=== PATIENT | female | born 1945 | race Caucasian/White ===

== ENCOUNTER 2018-01-18 05:56 | Inpatient (IN) ==
[2018-01-18] MEDS ORDERED: Morphine Inj 4 MG/ML Vial IV.PUSH ONE (06:20)
--- NOTE | 2018-01-18 06:24 | ED ---
HPI General Chief Complaint: Abdominal Pain Stated Complaint: Medical Time Seen by Provider: 01/18/18 06:06 Source: patient and EMS Mode of arrival: EMS Limitations: no limitations History of Present Illness MD complaint: Reports abdominal pain Onset (ago): minute(s) Pain Consistency: constant Location: Reports RUQ Severity scale (1-10): 7 Quality: Reports stabbing Radiation: Reports none Migration to: Reports no migration Relieving factors: nothing Exacerbating factors: nothing Associated symptoms: Reports denies other symptoms Related Data Home Medications Medication Instructions Recorded Confirmed No Known Home Medications 01/18/18 01/18/18 Previous Rx's Medication Instructions Recorded hydrocodone-acetaminophen [[place]] 1 tab PO Q6H #10 tab 01/21/18 Allergies Allergy/AdvReac Type Severity Reaction Status Date / Time No Known Allergies Allergy Verified 01/18/18 06:01 Review of Systems ROS: all other systems reviewed are negative [facility] Medical History Medical History Patient denies medical problems (Acute) Family History Family History Other No pertinent family history Social History Social History Substance History: No History of Abuse Second Hand Smoke Exposure: No Smoking Status: Former smoker Tobacco Type: Cigarettes How Often Do You Have a Drink Containing Alcohol: 4 or more times a week Recent Travel in [facility] within the Last 8 Weeks: No Recent Out of Country Travel within the Last 8 Weeks: No Immunization History Tetanus Immunization: Unsure Exam Const General: cooperative, healthy appearing, no acute distress, well developed, well groomed and other (She is sitting bolt upright on the stretcher) Orientation: alert, awake and oriented x3 HENMT Head: normal to inspection, normocephalic and atraumatic Mouth: moist mucous membranes Eyes Conjunctivae: conjunctivae normal Sclera: sclerae normal EOM: EOM intact bilaterally Neck Neck: normal visual inspection and full ROM Chest Chest: normal inspection of the chest Resp Effort & Inspection: normal respiratory effort and able to speak in complete sentences Auscultation: clear to auscultation bilaterally Cardio Rate: regular rate Rhythm: regular rhythm GI Inspection: normal to inspection Palpation: soft and tender in the RUQ Back/Spine/Pelvis Cervical Spine: cervical ROM normal Thoracic/Lumbar Spine: thoraco-lumbar ROM normal Skin General: no rashes or lesions noted and turgor normal Neuro General: alert, awake, oriented x3, moves all extremities and CN's II-XI intact bilaterally Extrem General: normal to inspection and full ROM Psych Appearance: grossly normal Mental Status: mental status grossly normal Speech and Movement: speech and movement normal Mood: congruent mood Affect: normal affect Attitude: cooperative Thought Process: normal Thought Content: normal Judgment: judgment good Course Initial Documented Vital Signs Temperature 98.7 F 01/18/18 06:04 Pulse Rate 94 H 01/18/18 06:04 Respiratory Rate 20 01/18/18 06:04 Blood Pressure 128/75 01/18/18 06:04 Pulse Oximetry 97 01/18/18 06:04 Last Documented Vital Signs Temperature 97.3 F L 01/21/18 08:00 Pulse Rate 74 01/21/18 08:00 Respiratory Rate 17 01/21/18 08:00 Blood Pressure 119/68 01/21/18 08:00 Pulse Oximetry 96 01/21/18 09:57 Medical Decision Making [facility] Narrative Medical decision making narrative: This is a healthy, 72-year-old woman who presents with the acute onset of right upper quadrant abdominal pain. It awakened her from sleep. She denies any associated symptoms. She still has her gallbladder. On exam, she is tender in the right upper quadrant. Abdominal workup has been initiated including an ultrasound of her gallbladder. In the meantime, she will be treated with IV Zofran and morphine. 9:04 AM. Patient was seen by ED physician and signed out to me. Normal saline solution 125 cc an hour. Pepcid 20 mg IV. Zosyn 3.375 g IV given. Medical Screen Exam Complete: Yes Emergency Medical Condition: Yes Differential Diagnosis Differential Diagnosis: Differential diagnosis of abdominal pain includes but is not limited to gastritis, pancreatitis, hepatitis, gastroenteritis, constipation, urinary retention, peptic ulcer disease, diverticulitis or appendicitis Lab Data Lab results reviewed: Yes I reviewed the patient's lab results. Result diagrams: 01/19/18 03:52 01/18/18 06:20 Lab Results 01/18/18 01/18/18 01/19/18 Range/Units 06:20 06:20 03:52 WBC 11.6 H 13.5 H (4.0-11.0) th/mm3 RBC 5.28 4.94 (4.00-5.30) mil/mm3 Hgb 16.4 H 15.4 H (11.6-15.3) gm/dL Hct 47.4 H 44.8 (35.0-46.0) % MCV 89.7 90.8 (80.0-100.0) fL MCH 31.1 31.2 (27.0-34.0) pg MCHC 34.6 34.3 (32.0-36.0) % RDW 14.7 14.7 (11.6-17.2) % Plt Count 368 283 (150-450) th/mm3 MPV 7.6 7.7 (7.0-11.0) fL Neut % (Auto) 85.1 H 95.7 H (16.0-70.0) % Lymph % (Auto) 9.7 2.8 L (9.0-44.0) % Divide % (Auto) 4.3 1.5 (0.0-8.0) % Eos % (Auto) 0.6 0.0 (0.0-4.0) % Baso % (Auto) 0.3 0.0 (0.0-2.0) % Neut # (Auto) 9.9 H 12.9 H (1.8-7.7) th/mm3 Lymph # (Auto) 1.1 0.4 L (1.0-4.8) th/mm3 [place] # (Auto) 0.5 0.2 (0.0-0.9) th/mm3 Eos # (Auto) 0.1 0.0 (0.0-0.4) th/mm3 Baso # (Auto) 0.0 0.0 (0.0-0.2) th/mm3 WBC Differential . . Differential Comment Auto diff final Auto diff final Sodium 138 (136-145) meq/L Potassium 3.9 (3.5-5.1) meq/L Chloride 106 (98-107) meq/L Carbon Dioxide 24.5 (21.0-32.0) meq/L Anion Gap 8 (5-15) meq/L BUN 9 (7-18) mg/dL Creatinine 0.73 (0.50-1.00) mg/dL Estimated GFR 78 L (>89) mL/min Random Glucose 90 (74-106) mg/dL Calcium 9.0 (8.5-10.1) mg/dL Magnesium 2.2 (1.5-2.5) mg/dL Total Bilirubin 0.5 (0.2-1.0) mg/dL AST 33 (15-37) U/L ALT 44 (10-53) U/L Alkaline Phosphatase 109 (45-117) U/L Total Protein 7.0 (6.4-8.2) g/dL Albumin 3.4 (3.4-5.0) g/dL Lipase 104 (73-393) U/L Urine Color (Yellw/Straw) Urine Clarity (Clear) Urine pH (5.0-8.5) Ur Specific [place] (1.002-1.035) Urine Protein (Neg-Trace) mg/dL Urine Glucose (UA) (Negative) mg/dL Urine Ketones (Negative) mg/dL Urine Occult Blood (Negative) Urine Nitrate (Negative) Urine Bilirubin (Negative) Urine Urobilinogen (Less than 2) mg/dL Ur Leukocyte Esterase (Negative) Urine RBC (0-3) /hpf Urine WBC (0-5) /hpf Ur Squamous Epith Cells (0-5) /hpf Urine Mucus (Occasional) /lpf Micro UA Comment Ur Microscopic Review Urine Culture Comments 01/19/18 Range/Units 08:40 WBC (4.0-11.0) th/mm3 RBC (4.00-5.30) mil/mm3 Hgb (11.6-15.3) gm/dL Hct (35.0-46.0) % MCV (80.0-100.0) fL MCH (27.0-34.0) pg MCHC (32.0-36.0) % RDW (11.6-17.2) % Plt Count (150-450) th/mm3 MPV (7.0-11.0) fL Neut % (Auto) (16.0-70.0) % Lymph % (Auto) (9.0-44.0) % [place] % (Auto) (0.0-8.0) % Eos % (Auto) (0.0-4.0) % Baso % (Auto) (0.0-2.0) % Neut # (Auto) (1.8-7.7) th/mm3 Lymph # (Auto) (1.0-4.8) th/mm3 [place] # (Auto) (0.0-0.9) th/mm3 Eos # (Auto) (0.0-0.4) th/mm3 Baso # (Auto) (0.0-0.2) th/mm3 WBC Differential Differential Comment Sodium (136-145) meq/L Potassium (3.5-5.1) meq/L Chloride (98-107) meq/L Carbon Dioxide (21.0-32.0) meq/L Anion Gap (5-15) meq/L BUN (7-18) mg/dL Creatinine (0.50-1.00) mg/dL Estimated GFR (>89) mL/min Random Glucose (74-106) mg/dL Calcium (8.5-10.1) mg/dL Magnesium (1.5-2.5) mg/dL Total Bilirubin (0.2-1.0) mg/dL AST (15-37) U/L ALT (10-53) U/L Alkaline Phosphatase (45-117) U/L Total Protein (6.4-8.2) g/dL Albumin (3.4-5.0) g/dL Lipase (73-393) U/L Urine Color Yellow (Yellw/Straw) Urine Clarity Clear (Clear) Urine pH 5.0 (5.0-8.5) Ur Specific [place] 1.024 (1.002-1.035) Urine Protein Negative (Neg-Trace) mg/dL Urine Glucose (UA) 50 (Negative) mg/dL Urine Ketones 80 or greater H (Negative) mg/dL Urine Occult Blood Negative (Negative) Urine Nitrate Negative (Negative) Urine Bilirubin Negative (Negative) Urine Urobilinogen Less than 2 (Less than 2) mg/dL Ur Leukocyte Esterase Negative (Negative) Urine RBC Less than 1 (0-3) /hpf Urine WBC 3 (0-5) /hpf Ur Squamous Epith Cells <1 (0-5) /hpf Urine Mucus Few H (Occasional) /lpf Micro UA Comment Culture not ind Ur Microscopic Review Not Reportable Urine Culture Comments Culture not ind Imaging Data Attestation: I personally reviewed and interpreted this imaging study as follows : Radiologist's impression: Gallbladder Ultrasound 01/18/18 06:20 CONCLUSION: 1. Abnormal gallbladder with diffuse wall thickening. Gallbladder contains sludge and stones. Electrician'S Assistant reports a positive sonographic Wright sign. These findings are suspicious for acute gallbladder inflammation/acute cholecystitis. 2. Abnormal echogenic area in the right lower pole kidney representing area of a renal scar versus angiomyolipoma measuring approximately 3.5 cm. When patient condition permits suggest further evaluation with abdomen CT. Discharge Plan Discharge Disposition Patient Disposition: ED Admit(ED Internal Use Only) Discharge Condition Condition: Good Discharge Order Discharge Orders: Discharge Order (Routine); Ordered 01/21/18 Ordered By: Jose Kong ED Use Only Admit Order (Routine); Ordered 01/18/18 Ordered By: Kalyan Javed Discharge Details Diagnosis: Acute cholecystitis Physicians Team ED Provider: Mini Aguilera Primary Care Provider: Primary Care Liv Ambriz Attending Provider: Jose Kong Other Providers: Micah Noble ED Status: Left Department Discharge Information Discharge Date/Time: 01/18/18 12:30
[2018-01-18 06:46] LABS: Baso % (Auto) 0.3 % (0.0-2.0); Eos # (Auto) 0.1 th/mm3 (0.0-0.4); Eos % (Auto) 0.6 % (0.0-4.0); Hematocrit 47.4 % (35.0-46.0); Hemoglobin 16.4 gm/dL (11.6-15.3); Lymph # (Auto) 1.1 th/mm3 (1.0-4.8); Lymph % (Auto) 9.7 % (9.0-44.0); Mean Corpuscular HGB Conc 34.6 % (32.0-36.0); Mean Corpuscular Hemoglobin 31.1 pg (27.0-34.0); Mean Corpuscular Volume 89.7 fL (80.0-100.0); Mean Platelet Volume 7.6 fL (7.0-11.0); Mono # (Auto) 0.5 th/mm3 (0.0-0.9); Mono % (Auto) 4.3 % (0.0-8.0); Neut # (Auto) 9.9 th/mm3 (1.8-7.7); Neut % (Auto) 85.1 % (16.0-70.0); Platelet Count 368 th/mm3 (150-450); Red Blood Count 5.28 mil/mm3 (4.00-5.30); Red Cell Distribution Width 14.7 % (11.6-17.2); White Blood Count 11.6 th/mm3 (4.0-11.0)
[2018-01-18 07:04] LABS: Alanine Aminotransferase 44 U/L (10-53)
[2018-01-18 07:06] LABS: Alkaline Phosphatase 109 U/L (45-117)
[2018-01-18 07:10] LABS: Albumin 3.4 g/dL (3.4-5.0); Anion Gap 8 meq/L (5-15); Aspartate Aminotransferase 33 U/L (15-37); Blood Urea Nitrogen 9 mg/dL (7-18); Carbon Dioxide 24.5 meq/L (21.0-32.0); Chloride 106 meq/L (98-107); Glomerular Filtration Rate 78 mL/min (>89); Glucose,Random 90 mg/dL (74-106); Lipase 104 U/L (73-393); Magnesium 2.2 mg/dL (1.5-2.5); Potassium 3.9 meq/L (3.5-5.1); Sodium 138 meq/L (136-145)
--- NOTE | 2018-01-18 08:43 | US ---
EXAM DATE: 01/18/2018 8:30 AM EST AGE/SEX: 72 years / Female INDICATIONS: Abdominal pain. CLINICAL DATA: This is the patient's initial encounter. Patient reports that signs and symptoms have been present for 1 day and indicates a pain score of 6/10. MEDICAL/SURGICAL HISTORY: . Abdominal pain. Tonsillectomy. COMPARISON: [facility] [place], CT PULMONARY ANGIOGRAM, 07/01/2012. . MEASUREMENTS: Liver:__ 13.9 cm. Common Bile Duct:__ 7mm. FINDINGS: Liver: Normal echogenicity without focal lesion or ductal dilatation. Portal Vein: Hepatopedal flow seen in portal vein. Common Duct: Proximal common duct measures 4 mm and more distally measures 7 mm. Gallbladder: Gallbladder demonstrates diffuse wall thickening and there is a single large stone in t he fundus measuring approximately 3.1 x 1.9 cm. Sludge fills the gallbladder neck. Automotive Service Director report s a positive sonographic Wright's sign. Pancreas: Not well visualized. Right Kidney: Normal echogenicity without hydronephrosis. There is an echogenic area at the lower po le which could represent an area of renal scarring or fat containing lesion. This area measures appro ximately 2.9 x 2.1 x 3.5 cm. In the upper pole there is an anechoic avascular lesion measuring 1.4 x 1.3 x 1.3 cm. Other: None. CONCLUSION: 1. Abnormal gallbladder with diffuse wall thickening. Gallbladder contains sludge and stones. Sonogr apher reports a positive sonographic Wright sign. These findings are suspicious for acute gallbladder inflammation/acute cholecystitis. 2. Abnormal echogenic area in the right lower pole kidney representing area of a renal scar versus a ngiomyolipoma measuring approximately 3.5 cm. When patient condition permits suggest further evaluati on with abdomen CT. Electronically signed by: Sebastian Messer MD 01/18/2018 8:41 AM EST
[2018-01-18] MEDS ORDERED: Piperacil/Tazo 3.375 GM Premix 50 ML IV.SIG ONE (09:03)
[2018-01-18] MEDS ORDERED: Famotidine PF Inj 20 MG/2 ML Vial IV.PUSH ONE (09:05)
[2018-01-18] MEDS: Sod Chloride 0.9% Inj 1,000 ML IV.CONT SCH ×2 (09:42→17:03)
[2018-01-18] MEDS ORDERED: Acetaminophen 325 MG Tablet PO PRN (10:46)
[2018-01-18] MEDS ORDERED: Morphine Sulfate Inj 2 MG/ML Vial IV.PUSH PRN (10:47)
--- NOTE | 2018-01-18 10:56 | P.CONGS ---
[facility] Gen Surgery Consult Note Consult date: 01/18/18 Reason for consult: abdominal pain Requesting physician: Jose Kong Narrative: CONSULTATION NOTE FOR SURGICAL ATTENDING, DR. CHIKI NOBLE This is a 72 year old female with a past medical history of COPD on home oxygen at night who presented to the ED with sudden onset of abdominal pain. She was in her usual state of health last night when she went to bed and suddenly woke up about 0330 this morning with RIGHT upper quadrant abdominal pain. The patient reports no associated nausea or vomiting. A gallbladder US was done which shows diffuse wall thickening with sludge and stones. Her WBC is normal. Her LFTs are normal. A General Surgery consultation has been requested. Review of Systems All other systems reviewed negative except as stated in [facility] PMF - History History Provided By: Patient - Medical History Medical History: Medical History (Last Reviewed 01/18/18 @ 10:52 by MARCOS Cheney) COPD (chronic obstructive pulmonary disease) Patient denies medical problems - Surgical History Surgical History: Surgical History (Last Reviewed 01/18/18 @ 10:52 by MARCOS Cheney) Hx of tonsillectomy - Social History I have reviewed the patient's Social History: Yes - Tobacco History Smoking Status: Former smoker - Alcohol History How Often Do You Have a Drink Containing Alcohol: 4 or more times a week - Substance Use History Substance History: No History of Abuse - Travel History Recent Travel in the [place] Within the Last 8 Weeks: No Recent Travel Out of the Country Within the Last 8 Weeks: No - Immunization History Tetanus Immunization: Unsure Medications and Allergies Allergies Allergy/AdvReac Type Severity Reaction Status Date / Time No Known Allergies Allergy Verified 01/18/18 06:01 Home Medications Medication Instructions Recorded Confirmed Type No Known Home Medications 01/18/18 01/18/18 History Active Medications: Active Medications Acetaminophen (Tylenol) 650 mg PO Q4H PRN PRN Reason: fever Albuterol (Albuterol Neb (Prn)) 1.25 mg NEB Q4HR NEB PRN PRN Reason: sob Sodium Chloride (Ns Inj) 1,000 mls @ 125 mls/hr IV.CONT .Q8H MRAISA Last Admin: 01/18/18 09:42 Dose: 125 mls/hr Morphine Sulfate (Morphine Inj) 2 mg IV.PUSH Q4H PRN PRN Reason: pain Ondansetron HCl (Zofran Inj) 4 mg IV.PUSH Q8H PRN PRN Reason: nausea Sodium Chloride (Ns Flush) 2 ml IV.FLUSH PRN PRN PRN Reason: FLUSH AFTER USING IV ACCESS Exam Vital signs: Vital Signs 01/18/18 06:04 01/18/18 08:59 Temperature 98.7 F Pulse Rate 94 H 92 H Respiratory Rate 20 17 Blood Pressure 128/75 157/64 H Pulse Oximetry 97 96 Intake & Output 01/17/18 01/18/18 01/18/18 18:59 06:59 18:59 Intake Total 50 / 50 Balance 50 / 50 Weight 63.503 kg Intake: IV 50 / 50 Zosyn 3.375 GM Premix 50 ML @ 50 / 50 100 mls/hr IV.SIG ONCE ONE Rx#: [id number] Narrative: GENERAL: Very pleasant 72 year old female resting in bed in no acute distress. SKIN: Warm and dry. HEAD: Atraumatic. Normocephalic. EYES: Pupils equal and round. No scleral icterus. No injection or drainage. ENT: No nasal bleeding or discharge. Mucous membranes pink and moist. NECK: Trachea midline. CARDIOVASCULAR: Regular rate and rhythm. RESPIRATORY: No accessory muscle use. Clear to auscultation. Breath sounds equal bilaterally. GASTROINTESTINAL: Abdomen soft, nondistended. RUQ tenderness with palpation. Slight epigastric pain with palpation. No visible scars or hernias. MUSCULOSKELETAL: Extremities without clubbing, cyanosis, or edema. No obvious deformities. NEUROLOGICAL: Awake and alert. No obvious cranial nerve deficits. Motor grossly within normal limits. Five out of 5 muscle strength in the arms and legs. Normal speech. PSYCHIATRIC: Appropriate mood and affect; insight and judgment normal. Results - Labs 01/18/18 06:20 01/18/18 06:20 Laboratory Results WBC 11.6 th/mm3 (4.0-11.0) H 01/18/18 06:20 RBC 5.28 mil/mm3 (4.00-5.30) 01/18/18 06:20 Hgb 16.4 gm/dL (11.6-15.3) H 01/18/18 06:20 Hct 47.4 % (35.0-46.0) H 01/18/18 06:20 MCV 89.7 fL (80.0-100.0) 01/18/18 06:20 MCH 31.1 pg (27.0-34.0) 01/18/18 06:20 MCHC 34.6 % (32.0-36.0) 01/18/18 06:20 RDW 14.7 % (11.6-17.2) 01/18/18 06:20 Plt Count 368 th/mm3 (150-450) 01/18/18 06:20 MPV 7.6 fL (7.0-11.0) 01/18/18 06:20 Neut % (Auto) 85.1 % (16.0-70.0) H 01/18/18 06:20 Lymph % (Auto) 9.7 % (9.0-44.0) 01/18/18 06:20 [place] % (Auto) 4.3 % (0.0-8.0) 01/18/18 06:20 Eos % (Auto) 0.6 % (0.0-4.0) 01/18/18 06:20 Baso % (Auto) 0.3 % (0.0-2.0) 01/18/18 06:20 Neut # (Auto) 9.9 th/mm3 (1.8-7.7) H 01/18/18 06:20 Lymph # (Auto) 1.1 th/mm3 (1.0-4.8) 01/18/18 06:20 [place] # (Auto) 0.5 th/mm3 (0.0-0.9) 01/18/18 06:20 Eos # (Auto) 0.1 th/mm3 (0.0-0.4) 01/18/18 06:20 Baso # (Auto) 0.0 th/mm3 (0.0-0.2) 01/18/18 06:20 WBC Differential . 01/18/18 06:20 Differential Comment Auto diff final 01/18/18 06:20 Sodium 138 meq/L (136-145) 01/18/18 06:20 Potassium 3.9 meq/L (3.5-5.1) 01/18/18 06:20 Chloride 106 meq/L (98-107) 01/18/18 06:20 Carbon Dioxide 24.5 meq/L (21.0-32.0) 01/18/18 06:20 Anion Gap 8 meq/L (5-15) 01/18/18 06:20 BUN 9 mg/dL (7-18) 01/18/18 06:20 Creatinine 0.73 mg/dL (0.50-1.00) 01/18/18 06:20 Estimated GFR 78 mL/min (>89) L 01/18/18 06:20 Random Glucose 90 mg/dL (74-106) 01/18/18 06:20 Calcium 9.0 mg/dL (8.5-10.1) 01/18/18 06:20 Magnesium 2.2 mg/dL (1.5-2.5) 01/18/18 06:20 Total Bilirubin 0.5 mg/dL (0.2-1.0) 01/18/18 06:20 AST 33 U/L (15-37) 01/18/18 06:20 ALT 44 U/L (10-53) 01/18/18 06:20 Alkaline Phosphatase 109 U/L (45-117) 01/18/18 06:20 Total Protein 7.0 g/dL (6.4-8.2) 01/18/18 06:20 Albumin 3.4 g/dL (3.4-5.0) 01/18/18 06:20 Lipase 104 U/L (73-393) 01/18/18 06:20 Impressions Gallbladder Ultrasound 01/18/18 06:20 CONCLUSION: 1. Abnormal gallbladder with diffuse wall thickening. Gallbladder contains sludge and stones. Labor Expediter reports a positive sonographic Wright sign. These findings are suspicious for acute gallbladder inflammation/acute cholecystitis. 2. Abnormal echogenic area in the right lower pole kidney representing area of a renal scar versus angiomyolipoma measuring approximately 3.5 cm. When patient condition permits suggest further evaluation with abdomen CT. - Imaging Imaging: ITS Impressions Gallbladder Ultrasound 01/18/18 06:20 CONCLUSION: 1. Abnormal gallbladder with diffuse wall thickening. Gallbladder contains sludge and stones. Labor Expediter reports a positive sonographic Wright sign. These findings are suspicious for acute gallbladder inflammation/acute cholecystitis. 2. Abnormal echogenic area in the right lower pole kidney representing area of a renal scar versus angiomyolipoma measuring approximately 3.5 cm. When patient condition permits suggest further evaluation with abdomen CT. US - abdomen: report reviewed (Gallbladder), image reviewed Additional studies: ITS Impressions Gallbladder Ultrasound 01/18/18 06:20 CONCLUSION: 1. Abnormal gallbladder with diffuse wall thickening. Gallbladder contains sludge and stones. Labor Expediter reports a positive sonographic Wright sign. These findings are suspicious for acute gallbladder inflammation/acute cholecystitis. 2. Abnormal echogenic area in the right lower pole kidney representing area of a renal scar versus angiomyolipoma measuring approximately 3.5 cm. When patient condition permits suggest further evaluation with abdomen CT. Assessment and Plan - Assessment (1) Acute cholecystitis Code(s): K81.0 - Acute cholecystitis Status: Acute Plan: 72 year old female with RUQ tenderness; gallbladder wall thickened with sludge and stones -Plan for OR this afternoon -Obtain consents -Procedure explained to patient as well as at the bedside -NPO -IVF -Thank you for this consult; We will continue to follow (2) Right upper quadrant pain Code(s): R10.11 - Right upper quadrant pain Status: Acute (3) Abnormal findings on diagnostic imaging of liver and biliary tract Code(s): R93.2 - Abnormal findings on diagnostic imaging of liver and biliary tract Status: Acute - Plan Discussed Condition With: Dr. Noble and Mrs. Christina - Attending Attestation CONSULTATION NOTE FOR SURGICAL ATTENDING, DR. CHIKI NOBLE Patient has signs and symptoms of acute cholecystitis positive Wright sign tenderness confirmed with radiologic imaging Plan laparoscopic cholecystectomy possible open notify the OR they are unsure of the time of the procedure at this point I agree with above assessment and plan. The exam, history, and the medical decision-making described in the above note were completed with the assistance of the mid-level provider. I reviewed and agree with the findings presented. I attest that I had a [id number] encounter with the patient on the same day, and personally performed and documented my assessment and findings in the medical record. The following services were provided during this hospital visit: Chart data review, vital sign assessments/reviewing monitor data Review of consultations notes if present. Medication orders/review and/or management Ordering and/or reviewing lab tests Ordering and/or interpreting/reviewing x-rays and/or diagnostic studies Care of the patient and discussion of the patient with the care team Documentation time To help prompt me to consider important information that might be impacting today's encounter and assessment, Information from prior notes written by myself or my colleagues may have been "brought forward/copy and pasted" into today's note.
--- NOTE | 2018-01-18 10:56 | P.HPIM ---
History of Present Illness Primary Care Physician: No Primary Care Physician Chief Complaint: abdominal pain History of Present Illness: patient is a 72 y/o female with history of COPD who presented to ER with abdominal pain. she says that the pain started this morning. pain was in epigastric area/ RUQ and was severe in intensity. she denies nausea,vomiting, fever or chills. she doesn't recall any previous similar episodes in the past. Inpatient Certification: I certify that the inpatient services were ordered in accordance with Medicare regulations governing the order. This includes certification that hospital inpatient services are reasonable and necessary and in the case of services not specified as inpatient-only under 42 CFR 419.22(n), that they are appropriately provided as inpatient services in accordance to with the 2-midnight benchmark under 43 CFR 412.3(e) Estimated Total Length of Stay (Days): 2 Plans for Post Hospital Care: Home Review of Systems All other systems reviewed negative except as stated in HPI PMFSH - History History Provided By: Patient - Medical History Medical History: Medical History (Last Reviewed 01/18/18 @ 10:52 by Jose Kong MD) COPD (chronic obstructive pulmonary disease) Patient denies medical problems - Surgical History Surgical History: Surgical History (Last Reviewed 01/18/18 @ 10:52 by Jose Kong MD) Hx of tonsillectomy - Family History Family History: Family History (Last Updated 01/18/18 @ 10:52 by Jose Kong MD) Other No pertinent family history - Tobacco History Smoking Status: Former smoker - Alcohol History How Often Do You Have a Drink Containing Alcohol: 4 or more times a week - Substance Use History Substance History: No History of Abuse - Travel History Recent Travel in the [place] Within the Last 8 Weeks: No Recent Travel Out of the Country Within the Last 8 Weeks: No - Immunization History Tetanus Immunization: Unsure Medications and Allergies Active Medications: Active Medications Acetaminophen (Tylenol) 650 mg PO Q4H PRN PRN Reason: fever Albuterol (Albuterol Neb (Prn)) 1.25 mg NEB Q4HR NEB PRN PRN Reason: sob Sodium Chloride (Ns Inj) 1,000 mls @ 125 mls/hr IV.CONT .Q8H [facility] Last Admin: 01/18/18 09:42 Dose: 125 mls/hr Piperacillin/Tazobactam/Dextrose (Zosyn 3.375 Gm Premix) 50 mls @ 100 mls/hr IV.SIG Q6H [facility] Morphine Sulfate (Morphine Inj) 2 mg IV.PUSH Q4H PRN PRN Reason: pain Ondansetron HCl (Zofran Inj) 4 mg IV.PUSH Q8H PRN PRN Reason: nausea Sodium Chloride (Ns Flush) 2 ml IV.FLUSH PRN PRN PRN Reason: FLUSH AFTER USING IV ACCESS Allergies Allergy/AdvReac Type Severity Reaction Status Date / Time No Known Allergies Allergy Verified 01/18/18 06:01 Home Medications Medication Instructions Recorded Confirmed Type No Known Home Medications 01/18/18 01/18/18 History Exam Vital signs: Vital Signs 01/18/18 06:04 01/18/18 08:59 Temperature 98.7 F Pulse Rate 94 H 92 H Respiratory Rate 20 17 Blood Pressure 128/75 157/64 H Pulse Oximetry 97 96 Intake & Output 01/17/18 01/18/18 01/18/18 18:59 06:59 18:59 Intake Total 50 / 50 Balance 50 / 50 Weight 63.503 kg Intake: IV 50 / 50 Zosyn 3.375 GM Premix 50 ML @ 50 / 50 100 mls/hr IV.SIG ONCE ONE Rx#: [id number] - Constitutional no acute distress - Routine HEENT Exam Eye: Present: PERRL - Routine Neck Exam Present: supple - Routine Respiratory Exam Present: CTA bilaterally - Routine Cardiovascular Exam Present: RRR - Routine Abdominal Exam Present: soft, tenderness (epigastric/RUQ tenderness.) - Routine Extremities Exam Comments: no pedal edema. - Routine Neurological Exam Present: alert, oriented X3 Results - Labs CBC & Chem 7: 01/18/18 06:20 01/18/18 06:20 Labs: Short CBC 01/18/18 Range/Units 06:20 WBC 11.6 H (4.0-11.0) th/mm3 Hgb 16.4 H (11.6-15.3) gm/dL Hct 47.4 H (35.0-46.0) % Plt Count 368 (150-450) th/mm3 BMP 01/18/18 06:20 Sodium 138 Potassium 3.9 Chloride 106 Carbon Dioxide 24.5 BUN 9 Creatinine 0.73 Calcium 9.0 Liver Function 01/18/18 Range/Units 06:20 Total Bilirubin 0.5 (0.2-1.0) mg/dL AST 33 (15-37) U/L ALT 44 (10-53) U/L Alkaline Phosphatase 109 (45-117) U/L Albumin 3.4 (3.4-5.0) g/dL - Imaging Impressions Gallbladder Ultrasound 01/18/18 06:20 CONCLUSION: 1. Abnormal gallbladder with diffuse wall thickening. Gallbladder contains sludge and stones. Membership Advisor reports a positive sonographic Wright sign. These findings are suspicious for acute gallbladder inflammation/acute cholecystitis. 2. Abnormal echogenic area in the right lower pole kidney representing area of a renal scar versus angiomyolipoma measuring approximately 3.5 cm. When patient condition permits suggest further evaluation with abdomen CT. Caprini VTE Risk Assessment Caprini VTE Risk Assessment: Moderate/High Risk (score >= 2) Caprini Risk Assessment Model: Point Value = 1 Point Value = 2 Point Value = 3 Point Value = 5 Age 41-60 Minor surgery BMI > 25 kg/m2 Swollen legs Varicose veins or History of unexplained or recurrent spontaneous Oral contraceptives or hormone replacement Sepsis (< 1 month) Serious lung disease, including pneumonia (< 1 month) Abnormal pulmonary function Acute myocardial infarction Congestive heart failure (< 1 month) History of inflammatory bowel disease Medical patient at bed rest Age 61-74 Arthroscopic surgery Major open surgery (> 45 min) Laparoscopic surgery (> 45 min) Malignancy Confined to bed (> 72 hours) Immobilizing plaster cast Central venous access Age >= 75 History of VTE Family history of VTE Factor V Leiden Prothrombin [id number] Lupus anticoagulant Anticardiolipin antibodies Elevated serum homocysteine Heparin-induced thrombocytopenia Other congenital or acquired thrombophilia Stroke (< 1 month) Elective arthroplasty Hip, pelvis, or leg fracture Acute spinal cord injury (< 1 month) Prophylaxis Regimen: Total Risk Factor Score Risk Level Prophylaxis Regimen 0-1 Low Early ambulation 2 Moderate Order ONE of the following: *Sequential Compression Device (SCD) *Heparin 5000 units SQ BID 3-4 Higher Order ONE of the following medications: *Heparin 5000 units SQ TID *Enoxaparin/Lovenox 40 mg SQ daily (WT < 150 kg, CrCl > 30 mL/min) *Enoxaparin/Lovenox 30 mg SQ daily (WT < 150 kg, CrCl > 10-29 mL/min) *Enoxaparin/Lovenox 30 mg SQ BID (WT < 150 kg, CrCl > 30 mL/min) AND/OR *Sequential Compression Device (SCD) 5 or more Highest Order ONE of the following medications: *Heparin 5000 units SQ TID (Preferred with Epidurals) *Enoxaparin/Lovenox 40 mg SQ daily (WT < 150 kg, CrCl > 30 mL/min) *Enoxaparin/Lovenox 30 mg SQ daily (WT < 150 kg, CrCl > 10-29 mL/min) *Enoxaparin/Lovenox 30 mg SQ BID (WT < 150 kg, CrCl > 30 mL/min) AND *Sequential Compression Device (SCD) Assessment and Plan - Plan A/P - acute cholecystitis; keep NPO- continue IV antibiotic,IV fluid and pain control. consult general surgery. -COPD with no exacerbation- on home oxygen ( at night); neb treatment/ oxygen as needed. -right lower kidney abnormal echogenic area; f/u as outpatient. -DVT prophylaxis; SCD's pending surgical evaluation/intervention. Discussed Condition With: ER physician and the patient. Discharge Planning: home when cleared by general surgery.
[2018-01-18] MEDS: Piperacil/Tazo 3.375 GM Premix 50 ML IV.SIG SCH ×2 (16:28→22:57)
[2018-01-18] MEDS ORDERED: Bupivacaine/Epinephrine PF Inj 0.5% 30 ML Vial ONE (18:13)
[2018-01-18] MEDS ORDERED: Sugammadex Inj 200 MG/2 ML Vial IV.PUSH ONE (20:58)
--- NOTE | 2018-01-18 22:09 | P.OP ---
- Preoperative Diagnosis (1) Acute cholecystitis (2) Right upper quadrant pain (3) Abnormal findings on diagnostic imaging of liver and biliary tract - Postoperative Diagnosis (1) Acute cholecystitis (2) Right upper quadrant pain (3) Abnormal findings on diagnostic imaging of liver and biliary tract Date of procedure: 01/18/18 Procedure: Laparoscopic cholecystectomy Anesthesia: GETA Surgeon: Micah Noble MD Pathology: other (Gallbladder) Operation and Findings: PREOPERATIVE DIAGNOSIS: Cholelithiasis And/or Cholecystitis POSTOP DIAGNOSIS: Cholecystitis cholelithiasis PROCEDURE: Laparoscopic Cholecystectomy ANESTHESIA: General SURGEON: Micah Noble M.D. ASST. please see operating room records PROCEDURE DETAILS The patient was brought to the operating room and after proper identification. The patient was intubated after the induction of appropriate anesthesia. The patient remained under general anesthesia for the duration of the case. The patient was prepped with an antiseptic over the abdomen in the usual fashion and then he was draped in the usual sterile fashion. Following the draping, the pneumoperitoneum was established via Veress needle after saline load test had been performed via a infra-umbilical incision. After direct visualization of the peritoneum, the trocar was introduced and insufflation was begun. After appropriate insufflation a scope was inserted and the abdomen was visually inspected to be benign in gross visualization. Next, another 5 mm port was placed just below the xiphoid. This was then followed by the placement of 5 mm ports in between the 2 previously placed ports. All port sites were anesthetized with a Marcaine solution. A third port was placed in the right upper quadrant The gallbladder was easily identified. There were a some adhesions. The gallbladder is massively dilated edematous and swollen no intraabdominal fluid. Upon retraction of the gallbladder, the infundibulum was identified. After some blunt dissection, the cystic duct was identified and then skeletonized using the small grasper. After appropriate identification of the cystic duct, it was clipped 3 times with 2 clips staying, 1 clip going. It was then transected with scissors. This was performed without any complication. Next, a cystic artery was identified it was very small and cauterized this was transected using the laparoscopic scissors. Following this, the gallbladder was easily retracted back and electrocautery was used to dissect the gallbladder fossa. There was a well-established plane. Again the gallbladder was very dilated edematous and swollen After application of the clips, no further bleeding from this site was appreciated. Hemostasis was attained on the gallbladder fossa using a small amount of electrocautery. Following the removal of the gallbladder from the gallbladder fossa, it was placed in an endobag and subsequently removed from the supraumbilical port site. The port site had to be elongated because of the massive size of the gallbladder we double checked for hemostasis at the cystic artery. Because of some inflammation and oozing we placed some Surgicel also checked the cystic duct stump which showed no bile leakage. All ports were then removed The infra-umbilical fascia was closed directly with 0 Vicryl and then the dermis was closed at all 3 incision sites with a 4-0 absorbable monofilament in a running subcuticular manner. The fascia was closed in a simple interrupted manner. Steri-Strips and dressings were placed over the incision sites. The patient was awakened from anesthesia. The patient was returned to post-anesthesia care unit in a stable condition. DETAIL SPECIFIC TO THIS PROCEDURE: Very edematous gallbladder and dilated with a large stone stuck in the neck Micah Noble M.D.
[2018-01-18] MEDS ORDERED: *morphine SULFATE 4 MG/ML PERIprocedure ONLY ONE (22:52)
[2018-01-18] MEDS ORDERED: fentaNYL Citrate Inj 100 MCG/2 ML Ampul ONE (22:56)
[2018-01-18] MEDS ORDERED: Morphine Inj 4 MG/ML Vial ONE (22:56)
[2018-01-19] MEDS: Sod Chloride 0.9% Inj 1,000 ML IV.CONT SCH ×3 (04:46→18:22)
[2018-01-19] MEDS: Piperacil/Tazo 3.375 GM Premix 50 ML IV.SIG SCH ×4 (04:47→22:08)
[2018-01-19 05:46] LABS: Hematocrit 44.8 % (35.0-46.0); Hemoglobin 15.4 gm/dL (11.6-15.3); Lymph # (Auto) 0.4 th/mm3 (1.0-4.8); Lymph % (Auto) 2.8 % (9.0-44.0); Mean Corpuscular HGB Conc 34.3 % (32.0-36.0); Mean Corpuscular Hemoglobin 31.2 pg (27.0-34.0); Mean Corpuscular Volume 90.8 fL (80.0-100.0); Mean Platelet Volume 7.7 fL (7.0-11.0); Mono # (Auto) 0.2 th/mm3 (0.0-0.9); Mono % (Auto) 1.5 % (0.0-8.0); Neut # (Auto) 12.9 th/mm3 (1.8-7.7); Neut % (Auto) 95.7 % (16.0-70.0); Platelet Count 283 th/mm3 (150-450); Red Blood Count 4.94 mil/mm3 (4.00-5.30); Red Cell Distribution Width 14.7 % (11.6-17.2); White Blood Count 13.5 th/mm3 (4.0-11.0)
[2018-01-19 09:11] LABS: Bilirubin,Urine Negative (Negative); Clarity,Urine Clear (Clear); Color,Urine Yellow (Yellw/Straw); Glucose,Urine (UA) 50 mg/dL (Negative); Leukocyte Esterase,Urine Negative (Negative); Mucus,Urine Few /lpf (Occasional); Nitrite,Urine Negative (Negative); Specific Gravity,Urine 1.024 (1.002-1.035); Squamous Epithelial Cell,Urine <1 /hpf (0-5)
--- NOTE | 2018-01-19 10:39 | P.PNIM ---
Subjective Interval history: f/u; acute cholecystitis in no acute distress. however is uncomfortable with abdominal pain. no nausea/vomiting. no fever. Physical Exam Vital signs: Vital Signs 01/18/18 11:38 01/18/18 16:00 01/18/18 20:11 Temperature 97.1 F L 97.8 F Pulse Rate 84 82 85 Respiratory Rate 20 17 20 Blood Pressure 163/72 H 162/69 H 189/90 H Pulse Oximetry 97 97 96 01/18/18 20:15 01/18/18 22:22 01/18/18 22:30 Temperature 98.5 F Pulse Rate 84 85 Respiratory Rate 32 H 34 H Blood Pressure 176/84 H 163/72 H Pulse Oximetry 96 93 L 97 01/18/18 22:45 01/18/18 22:46 01/18/18 23:00 Temperature 97.5 F L Pulse Rate 84 90 Respiratory Rate 31 H 37 H Blood Pressure 161/74 H 138/56 L Pulse Oximetry 95 95 94 L 01/18/18 23:10 01/19/18 00:00 01/19/18 04:00 Temperature 97.2 F L 97.7 F Pulse Rate 88 88 90 Respiratory Rate 36 H 18 18 Blood Pressure 137/62 121/60 129/60 Pulse Oximetry 93 L 94 L 96 01/19/18 08:00 Temperature 97.3 F L Pulse Rate 85 Respiratory Rate 17 Blood Pressure 151/78 H Pulse Oximetry 96 Intake & Output 01/18/18 01/19/18 01/19/18 18:59 06:59 18:59 Intake Total 1100 / 1100 2430 / 2430 Output Total 50 / 50 Balance 1100 / 1100 2380 / 2380 Weight 61.6 kg 72.9 kg Intake: IV 1100 / 1100 1100 / 1100 NS Inj 1,000 ML @ 125 mls/hr IV 1000 / 1000 1000 / 1000 .CONT .Q8H [facility] Rx#:[id number] Zosyn 3.375 GM Premix 50 ML @ 100 / 100 100 / 100 100 mls/hr IV.SIG Q6H [facility] Rx#: [id number] Oral 0 / 0 30 / 30 Anesthesia Amount 1300 / 1300 Output: Urine 0 / 0 Estimated Blood Loss 50 / 50 Other: # Voids 2 2 # Bowel Movements 0 Weight On Admission 61.6 kg - Constitutional no acute distress - Routine Respiratory Exam Present: CTA bilaterally - Routine Cardiovascular Exam Present: RRR - Routine Abdominal Exam Present: soft, tenderness (RUQ tenderness.) - Routine Extremities Exam Comments: no pedal edema. - Routine Neurological Exam Present: alert, oriented X3 Results - Labs CBC & Chem 7: 01/19/18 03:52 01/18/18 06:20 Laboratory Results - last 24 hr 01/19/18 01/19/18 03:52 08:40 WBC 13.5 H RBC 4.94 Hgb 15.4 H Hct 44.8 MCV 90.8 MCH 31.2 MCHC 34.3 RDW 14.7 Plt Count 283 MPV 7.7 Neut % (Auto) 95.7 H Lymph % (Auto) 2.8 L [place] % (Auto) 1.5 Eos % (Auto) 0.0 Baso % (Auto) 0.0 Neut # (Auto) 12.9 H Lymph # (Auto) 0.4 L [place] # (Auto) 0.2 Eos # (Auto) 0.0 Baso # (Auto) 0.0 WBC Differential . Differential Comment Auto diff final Urine Color Yellow Urine Clarity Clear Urine pH 5.0 Ur Specific [place] 1.024 Urine Protein Negative Urine Glucose (UA) 50 Urine Ketones 80 or greater H Urine Occult Blood Negative Urine Nitrate Negative Urine Bilirubin Negative Urine Urobilinogen Less than 2 Ur Leukocyte Esterase Negative Urine RBC Less than 1 Urine WBC 3 Ur Squamous Epith Cells <1 Urine Mucus Few H Micro UA Comment Culture not ind Ur Microscopic Review Not Reportable Urine Culture Comments Culture not ind Assessment and Plan - Plan A/P - acute cholecystitis; s/p laparoscopic cholecystectomy- continue pain control. general surgery following. -COPD with no exacerbation- on home oxygen ( at night); neb treatment/ oxygen as needed. -right lower kidney abnormal echogenic area; f/u as outpatient. -DVT prophylaxis;when ok with surgery. Discharge Planning: home when cleared by general surgery and pain is controlled.
--- NOTE | 2018-01-19 12:22 | P.PNGS ---
Subjective Patient reports: feels better, still having pain, tolerating liquids well, nausea, afebrile Physical Exam Vital signs: Vital Signs 01/18/18 16:00 01/18/18 20:11 01/18/18 20:15 Temperature 97.1 F L 97.8 F Pulse Rate 82 85 Respiratory Rate 17 20 Blood Pressure 162/69 H 189/90 H Pulse Oximetry 97 96 96 01/18/18 22:22 01/18/18 22:30 01/18/18 22:45 Temperature 98.5 F Pulse Rate 84 85 Respiratory Rate 32 H 34 H Blood Pressure 176/84 H 163/72 H Pulse Oximetry 93 L 97 95 01/18/18 22:46 01/18/18 23:00 01/18/18 23:10 Temperature 97.5 F L Pulse Rate 84 90 88 Respiratory Rate 31 H 37 H 36 H Blood Pressure 161/74 H 138/56 L 137/62 Pulse Oximetry 95 94 L 93 L 01/19/18 00:00 01/19/18 04:00 01/19/18 08:00 Temperature 97.2 F L 97.7 F 97.3 F L Pulse Rate 88 90 85 Respiratory Rate 18 18 17 Blood Pressure 121/60 129/60 151/78 H Pulse Oximetry 94 L 96 96 01/19/18 12:00 Temperature 97.3 F L Pulse Rate 92 H Respiratory Rate 20 Blood Pressure 182/90 H Pulse Oximetry 95 Intake & Output 01/18/18 01/19/18 01/19/18 18:59 06:59 18:59 Intake Total 1100 / 1100 2430 / 2430 50 / 50 Output Total 50 / 50 Balance 1100 / 1100 2380 / 2380 50 / 50 Weight 61.6 kg 72.9 kg Intake: IV 1100 / 1100 1100 / 1100 50 / 50 NS Inj 1,000 ML @ 125 mls/hr IV 1000 / 1000 1000 / 1000 .CONT .Q8H [facility] Rx#:[id number] Zosyn 3.375 GM Premix 50 ML @ 100 / 100 100 / 100 50 / 50 100 mls/hr IV.SIG Q6H [facility] Rx#: [id number] Oral 0 / 0 30 / 30 Anesthesia Amount 1300 / 1300 Output: Urine 0 / 0 Estimated Blood Loss 50 / 50 Other: # Voids 2 2 # Bowel Movements 0 Weight On Admission 61.6 kg - Routine Abdominal Exam Present: soft, normoactive bowel sounds, tenderness, surgical scars, wound Results - Labs 01/19/18 03:52 01/18/18 06:20 Laboratory Results - last 24 hr 01/19/18 01/19/18 03:52 08:40 WBC 13.5 H RBC 4.94 Hgb 15.4 H Hct 44.8 MCV 90.8 MCH 31.2 MCHC 34.3 RDW 14.7 Plt Count 283 MPV 7.7 Neut % (Auto) 95.7 H Lymph % (Auto) 2.8 L [place] % (Auto) 1.5 Eos % (Auto) 0.0 Baso % (Auto) 0.0 Neut # (Auto) 12.9 H Lymph # (Auto) 0.4 L [place] # (Auto) 0.2 Eos # (Auto) 0.0 Baso # (Auto) 0.0 WBC Differential . Differential Comment Auto diff final Urine Color Yellow Urine Clarity Clear Urine pH 5.0 Ur Specific [place] 1.024 Urine Protein Negative Urine Glucose (UA) 50 Urine Ketones 80 or greater H Urine Occult Blood Negative Urine Nitrate Negative Urine Bilirubin Negative Urine Urobilinogen Less than 2 Ur Leukocyte Esterase Negative Urine RBC Less than 1 Urine WBC 3 Ur Squamous Epith Cells <1 Urine Mucus Few H Micro UA Comment Culture not ind Ur Microscopic Review Not Reportable Urine Culture Comments Culture not ind - Imaging Imaging: ITS Impressions Gallbladder Ultrasound 01/18/18 06:20 CONCLUSION: 1. Abnormal gallbladder with diffuse wall thickening. Gallbladder contains sludge and stones. Needle Felt Making Machine Operator reports a positive sonographic Wright sign. These findings are suspicious for acute gallbladder inflammation/acute cholecystitis. 2. Abnormal echogenic area in the right lower pole kidney representing area of a renal scar versus angiomyolipoma measuring approximately 3.5 cm. When patient condition permits suggest further evaluation with abdomen CT. Assessment and Plan - Assessment (1) Acute cholecystitis Code(s): K81.0 - Acute cholecystitis Status: Acute Plan: 72 year old female with RUQ tenderness; gallbladder wall thickened with sludge and stones -Plan for OR this afternoon -Obtain consents -Procedure explained to patient as well as at the bedside -NPO -IVF -Thank you for this consult; We will continue to follow - Plan continue post op care advance diet as tolerated may DC when pain controlled and tolerating diet.
--- NOTE | 2018-01-19 17:36 | ECG ---
Date Performed: 01/18/2018 Time Performed: 07:11:45 PTAGE: 72 years EKG: Sinus rhythm MARKED LEFT AXIS DEVIATION LOW QRS VOLTAGE IN PRECORDIAL LEADS POSSIBLE RIGHT VENTRICULAR CONDUCTION DELAY NONSPECIFIC ST & T-WAVE ABNORMALITY ABNORMAL ECG PREVIOUS TRACING : 07/01/2012 16.56 DOCTOR: Andrzej Henry Interpretating Date/Time 01/19/2018 17:26:41
[2018-01-20] MEDS: Sod Chloride 0.9% Inj 1,000 ML IV.CONT SCH ×2 (01:07→10:04)
[2018-01-20] MEDS: Piperacil/Tazo 3.375 GM Premix 50 ML IV.SIG SCH ×4 (03:50→21:20)
--- NOTE | 2018-01-20 08:45 | P.PNIM ---
Subjective Interval history: f/u; cholecystitis in no acute distress. however still with abdominal pain. no nausea/vomiting or fever. Physical Exam Vital signs: Vital Signs 01/19/18 12:00 01/19/18 13:43 01/19/18 16:00 Temperature 97.3 F L 97.3 F L Pulse Rate 92 H 85 Respiratory Rate 20 20 Blood Pressure 182/90 H 153/73 H Pulse Oximetry 95 95 95 01/19/18 20:00 01/20/18 00:00 Temperature 97.9 F 97.3 F L Pulse Rate 80 80 Respiratory Rate 20 20 Blood Pressure 164/92 H 148/83 H Pulse Oximetry 97 96 Intake & Output 01/19/18 01/20/18 01/20/18 18:59 06:59 18:59 Intake Total 2059 1220 / 1220 Balance 2059 1220 / 1220 Weight 75.6 kg Intake: IV 1100 / 1100 1100 / 1100 NS Inj 1,000 ML @ 125 mls/hr IV 1000 / 1000 1000 / 1000 .CONT .Q8H [facility] Rx#:[id number] Zosyn 3.375 GM Premix 50 ML @ 100 / 100 100 / 100 100 mls/hr IV.SIG Q6H [facility] Rx#: [id number] Oral 960 / 960 120 / 120 Other: # Voids 3 2 - Constitutional no acute distress - Routine Respiratory Exam Present: CTA bilaterally - Routine Cardiovascular Exam Present: RRR - Routine Abdominal Exam Present: soft, tenderness (RUQ tenderness.) - Routine Extremities Exam Comments: no pedal edema. - Routine Neurological Exam Present: alert, oriented X3 Results - Labs CBC & Chem 7: 01/19/18 03:52 01/18/18 06:20 Laboratory Results - last 24 hr 01/19/18 08:40 Urine Color Yellow Urine Clarity Clear Urine pH 5.0 Ur Specific [place] 1.024 Urine Protein Negative Urine Glucose (UA) 50 Urine Ketones 80 or greater H Urine Occult Blood Negative Urine Nitrate Negative Urine Bilirubin Negative Urine Urobilinogen Less than 2 Ur Leukocyte Esterase Negative Urine RBC Less than 1 Urine WBC 3 Ur Squamous Epith Cells <1 Urine Mucus Few H Micro UA Comment Culture not ind Ur Microscopic Review Not Reportable Urine Culture Comments Culture not ind Assessment and Plan - Plan A/P - acute cholecystitis; s/p laparoscopic cholecystectomy- continue pain control. general surgery following. -COPD with no exacerbation- on home oxygen ( at night); neb treatment/ oxygen as needed. -right lower kidney abnormal echogenic area; f/u as outpatient. -DVT prophylaxis;when ok with surgery. Discharge Planning: home when pain is controlled. E-Foarsce was reviewed before discharge.
--- NOTE | 2018-01-20 14:42 | P.PNGS ---
Subjective Patient reports: feels better, still having pain, tolerating a regular diet Physical Exam Vital signs: Vital Signs 01/19/18 16:00 01/19/18 20:00 01/20/18 00:00 Temperature 97.3 F L 97.9 F 97.3 F L Pulse Rate 85 80 80 Respiratory Rate 20 20 20 Blood Pressure 153/73 H 164/92 H 148/83 H Pulse Oximetry 95 97 96 01/20/18 08:00 01/20/18 12:00 01/20/18 12:13 Temperature 97.4 F L 97.2 F L Pulse Rate 77 84 Respiratory Rate 20 21 Blood Pressure 140/71 162/72 H Pulse Oximetry 98 96 98 Intake & Output 01/19/18 01/20/18 01/20/18 18:59 06:59 18:59 Intake Total 2059 / 2059 1220 / 1220 1050 / 1050 Balance 2059 1220 / 1220 1050 / 1050 Weight 75.6 kg Intake: IV 1100 / 1100 1100 / 1100 1050 / 1050 NS Inj 1,000 ML @ 125 mls/hr IV 1000 / 1000 1000 / 1000 1000 / 1000 .CONT .Q8H [facility] Rx#:[id number] Zosyn 3.375 GM Premix 50 ML @ 100 / 100 100 / 100 50 / 50 100 mls/hr IV.SIG Q6H [facility] Rx#: [id number] Oral 960 / 960 120 / 120 Other: # Voids 3 2 - Constitutional no acute distress - Routine Abdominal Exam Present: soft, normoactive bowel sounds, tenderness. Absent: distended, rebound , guarding Results - Labs 01/19/18 03:52 01/18/18 06:20 - Imaging Imaging: ITS Impressions Gallbladder Ultrasound 01/18/18 06:20 CONCLUSION: 1. Abnormal gallbladder with diffuse wall thickening. Gallbladder contains sludge and stones. Nougat Cutter Machine reports a positive sonographic Wright sign. These findings are suspicious for acute gallbladder inflammation/acute cholecystitis. 2. Abnormal echogenic area in the right lower pole kidney representing area of a renal scar versus angiomyolipoma measuring approximately 3.5 cm. When patient condition permits suggest further evaluation with abdomen CT. Assessment and Plan - Assessment (1) Acute cholecystitis Code(s): K81.0 - Acute cholecystitis Status: Acute Plan: 72 year old female s/p lap darek -pain ok -tolerating PO -encouraged OOB -HLIV
[2018-01-21] MEDS: Piperacil/Tazo 3.375 GM Premix 50 ML IV.SIG SCH (04:13)
--- NOTE | 2018-01-21 08:08 | P.PNIM ---
Subjective Interval history: f/u; cholecystitis in no acute distress. looks and feels much better today. abdominal pain has subsided. no nausea/vomiting and had a BM. Physical Exam Vital signs: Vital Signs 01/20/18 12:00 01/20/18 12:13 01/20/18 16:00 Temperature 97.2 F L 97.4 F L Pulse Rate 84 92 H Respiratory Rate 21 21 Blood Pressure 162/72 H 190/94 H Pulse Oximetry 96 98 96 01/20/18 20:00 01/20/18 21:07 01/21/18 00:00 Temperature 97.3 F L 97.9 F Pulse Rate 82 85 Respiratory Rate 18 19 Blood Pressure 168/65 H 178/86 H Pulse Oximetry 93 L 93 L 94 L 01/21/18 08:00 Temperature 97.3 F L Pulse Rate 74 Respiratory Rate 17 Blood Pressure 119/68 Pulse Oximetry 95 Intake & Output 01/20/18 01/21/18 01/21/18 18:59 06:59 18:59 Intake Total 1770 / 1770 600 / 600 Balance 1770 / 1770 600 / 600 Weight 75.6 kg Intake: IV 1050 / 1050 150 / 150 NS Inj 1,000 ML @ 125 mls/hr IV 1000 / 1000 .CONT .Q8H MARISA Rx#:[id number] Zosyn 3.375 GM Premix 50 ML @ 50 / 50 150 / 150 100 mls/hr IV.SIG Q6H MARISA Rx#: [id number] Oral 720 / 720 450 / 450 Other: # Voids 4 2 - Constitutional no acute distress - Routine Respiratory Exam Present: CTA bilaterally - Routine Cardiovascular Exam Present: RRR - Routine Abdominal Exam Present: soft - Routine Extremities Exam Comments: no pedal edema. - Routine Neurological Exam Present: alert, oriented X3 Results - Labs CBC & Chem 7: 01/19/18 03:52 01/18/18 06:20 - Procedures laparoscopic cholecystectomy. Assessment and Plan - Plan A/P - acute cholecystitis; s/p laparoscopic cholecystectomy- continue pain control. general surgery follow-up appreciated and cleared for discharge. -COPD with no exacerbation- on home oxygen ( at night); neb treatment/ oxygen as needed. -right lower kidney abnormal echogenic area; f/u as outpatient ( this was d/w the patient). -DVT prophylaxis;when ok with surgery. Discussed Condition With: the patient, RN. . Discharge Planning: dc home today. f/u; pcp and general surgery. see med list. E-Foarsce was reviewed before discharge.
--- NOTE | 2018-01-21 08:09 | P.DS ---
Date of admission: 01/18/18 10:30 Primary care physician: No Primary Care Physician Brief History from admission: patient is a 72 y/o female with history of COPD who presented to ER with abdominal pain. she says that the pain started this morning. pain was in epigastric area/ RUQ and was severe in intensity. she denies nausea,vomiting, fever or chills. she doesn't recall any previous similar episodes in the past. DS: Medications - Discharge Medications Prescriptions: hydrocodone-acetaminophen 2 tab PO Q4H PRN #14 tab PRN Reason: acute pain DS: Summary Hospital Course: - acute cholecystitis; s/p laparoscopic cholecystectomy- continue pain control. general surgery follow-up appreciated and cleared for discharge. -COPD with no exacerbation- on home oxygen ( at night); neb treatment/ oxygen as needed. -right lower kidney abnormal echogenic area; f/u as outpatient. -DVT prophylaxis;when ok with surgery. - Time Spent with Patient Total time spent providing and/or coordinating discharge services: Less than 30 minutes - Quality: VTE Deep Vein Thrombosis/Pulmonary Embolism Present on Admission: No Exam Vital signs: Vital Signs 01/20/18 12:00 01/20/18 12:13 01/20/18 16:00 Temperature 97.2 F L 97.4 F L Pulse Rate 84 92 H Respiratory Rate 21 21 Blood Pressure 162/72 H 190/94 H Pulse Oximetry 96 98 96 01/20/18 20:00 01/20/18 21:07 01/21/18 00:00 Temperature 97.3 F L 97.9 F Pulse Rate 82 85 Respiratory Rate 18 19 Blood Pressure 168/65 H 178/86 H Pulse Oximetry 93 L 93 L 94 L 01/21/18 08:00 Temperature 97.3 F L Pulse Rate 74 Respiratory Rate 17 Blood Pressure 119/68 Pulse Oximetry 95 Intake & Output 01/20/18 01/21/18 01/21/18 18:59 06:59 18:59 Intake Total 1770 / 1770 600 / 600 Balance 1770 / 1770 600 / 600 Weight 75.6 kg Intake: IV 1050 / 1050 150 / 150 NS Inj 1,000 ML @ 125 mls/hr IV 1000 / 1000 .CONT .Q8H MARISA Rx#:[id number] Zosyn 3.375 GM Premix 50 ML @ 50 / 50 150 / 150 100 mls/hr IV.SIG Q6H MARISA Rx#: [id number] Oral 720 / 720 450 / 450 Other: # Voids 4 2 - Constitutional no acute distress - Routine Respiratory Exam Present: CTA bilaterally - Routine Cardiovascular Exam Present: RRR - Routine Abdominal Exam Present: soft - Routine Extremities Exam Comments: no pedal edema. - Routine Neurological Exam Present: alert, oriented X3 Results Procedures completed during hospitalization: laparoscopic cholecystectomy. Pending studies at discharge: Pending at discharge 01/18/18 Surgical [PTH] Routine - Impressions ITS Impressions Gallbladder Ultrasound 01/18/18 06:20 CONCLUSION: 1. Abnormal gallbladder with diffuse wall thickening. Gallbladder contains sludge and stones. Poultry Farm Manager reports a positive sonographic Wright sign. These findings are suspicious for acute gallbladder inflammation/acute cholecystitis. 2. Abnormal echogenic area in the right lower pole kidney representing area of a renal scar versus angiomyolipoma measuring approximately 3.5 cm. When patient condition permits suggest further evaluation with abdomen CT. Discharge Plan - Discharge Disposition Patient Disposition: 01 Discharge Home - Physicians Team Primary Care Provider: Primary Care Liv Ambriz Attending Provider: Jose Kong Other Providers: Micah Noble MD
--- NOTE | 2018-01-21 09:30 | P.PNGS ---
Subjective Patient reports: feels better Interval history: DAILY PROGRESS NOTE FOR SURGICAL ATTENDING, DR. CHIKI SERRATO Patient excited to go home Physical Exam Vital signs: Vital Signs 01/20/18 12:00 01/20/18 12:13 01/20/18 16:00 Temperature 97.2 F L 97.4 F L Pulse Rate 84 92 H Respiratory Rate 21 21 Blood Pressure 162/72 H 190/94 H Pulse Oximetry 96 98 96 01/20/18 20:00 01/20/18 21:07 01/21/18 00:00 Temperature 97.3 F L 97.9 F Pulse Rate 82 85 Respiratory Rate 18 19 Blood Pressure 168/65 H 178/86 H Pulse Oximetry 93 L 93 L 94 L 01/21/18 08:00 Temperature 97.3 F L Pulse Rate 74 Respiratory Rate 17 Blood Pressure 119/68 Pulse Oximetry 95 Intake & Output 01/20/18 01/21/18 01/21/18 18:59 06:59 18:59 Intake Total 1770 / 1770 600 / 600 Balance 1770 / 1770 600 / 600 Weight 75.6 kg Intake: IV 1050 / 1050 150 / 150 NS Inj 1,000 ML @ 125 mls/hr IV 1000 / 1000 .CONT .Q8H MARISA Rx#:[id number] Zosyn 3.375 GM Premix 50 ML @ 50 / 50 150 / 150 100 mls/hr IV.SIG Q6H MARISA Rx#: [id number] Oral 720 / 720 450 / 450 Other: # Voids 4 2 Narrative: G patient postoperative from cholecystectomy Pain is improved Results - Labs 01/19/18 03:52 01/18/18 06:20 - Imaging Imaging: ITS Impressions Gallbladder Ultrasound 01/18/18 06:20 CONCLUSION: 1. Abnormal gallbladder with diffuse wall thickening. Gallbladder contains sludge and stones. Recovery Manager reports a positive sonographic Wright sign. These findings are suspicious for acute gallbladder inflammation/acute cholecystitis. 2. Abnormal echogenic area in the right lower pole kidney representing area of a renal scar versus angiomyolipoma measuring approximately 3.5 cm. When patient condition permits suggest further evaluation with abdomen CT. Assessment and Plan - Assessment (1) Acute cholecystitis Code(s): K81.0 - Acute cholecystitis Status: Acute Plan: 72 year old female s/p lap darek Plan to go home Discussed with admitting physician at the bedside patient instructed to follow-up in my office 7-10 days (2) S/P laparoscopic cholecystectomy Code(s): Z90.49 - Acquired absence of other specified parts of digestive tract Status: Acute - Attending Attestation NOTE FOR SURGICAL ATTENDING, DR. CHIKI SERRATO I attest that I had a [id number] encounter with the patient on the same day, and personally performed and documented my assessment and findings in the medical record. The following services were provided during this hospital visit: Chart data review, vital sign assessments/reviewing monitor data Review of consultations notes if present. Medication orders/review and/or management Ordering and/or reviewing lab tests Ordering and/or interpreting/reviewing x-rays and/or diagnostic studies Care of the patient and discussion of the patient with the care team Documentation time To help prompt me to consider important information that might be impacting today's encounter and assessment, Information from prior notes written by myself or my colleagues may have been "brought forward/copy and pasted" into today's note.
== END 2018-01-21 10:52 | disposition home or self-care (01) ==
LOC: NEPE 05:56 → NEDA 10:30 → N07 12:15
PROVIDERS: ADMIT Internal Medicine; ATTEND Internal Medicine